=== PATIENT | female | born 1995 | race Caucasian/White ===

== ENCOUNTER 2017-06-18 18:58 | Emergency (ER) | payer MEDICAID ==
[~2017-06-18] VITALS: Ht 160 cm; Wt 71.5 kg
[~2017-06-18 18:58] MED LIST: ALBU8.5H3 INH; ALBU8.5H5 INH; CETI10CA PO; GUAI118L94 PO; PREN-39 PO
[2017-06-18 19:06] VITALS: Ht 160 cm; Wt 71.5 kg
[2017-06-18 23:32] LABS: URINE BLOOD (Dip) POC Negative (NEGATIVE)
[2017-06-19 00:24] LABS: CALCIUM 8.7 mg/dl (8.4-10.2); CREATININE 0.53 mg/dl (0.44-1.00); POTASSIUM 3.9 mmol/L (3.5-5.1)
[2017-06-19 01:29] LABS: BASOPHILS % 0.4 % (0.0-2.0); EOSINOPHILS # 0.2 10^3/ul (0.0-0.5); EOSINOPHILS % 1.6 % (0.0-7.0); HEMATOCRIT 35.9 % (37.0-47.0); HEMOGLOBIN 12.3 g/dl (12.0-16.0); LYMPHOCYTES # 2.8 10^3/ul (0.8-2.9); LYMPHOCYTES % 28.8 % (15.0-51.0); MEAN CORPUSCULAR HEMOGLOBIN 29.6 pg (29.0-33.0); MEAN CORPUSCULAR HGB CONC 34.3 g/dl (32.0-37.0); MEAN CORPUSCULAR VOLUME 86.3 fl (82.0-101.0); MONOCYTES % 10.3 % (0.0-11.0); NEUTROPHIL # 5.6 10^3/ul (1.6-7.5); NEUTROPHILS % 58.4 % (39.0-77.0); PLATELET COUNT 221 10^3/UL (140-415); RED BLOOD COUNT 4.16 10^6/ul (4.20-5.40); RED CELL DISTRIBUTION WIDTH 13.9 % (11.5-14.5); WHITE BLOOD COUNT 9.6 10^3/ul (4.8-10.8)
[2017-06-23 16:11] LABS: URINE BLOOD (Dip) POC Negative (NEGATIVE)
[2017-06-25] MEDS ORDERED: NITR-58 PO (22:51)
[2017-06-25] MEDS ORDERED: ACET500C5 PO (22:52)
--- NOTE | 2017-06-28 12:43 | ERA ---
ER Documentation Chief Complaint Date/Time DATE: 06/28/17 TIME: 12:35 Chief Complaint abd pain since last night, 18 weeks , denies vb HPI 21-year-old female 18 weeks with a chief complaint of abdominal pain. Denies bleeding fever, dysuria, nausea, vomiting, diarrhea, vaginal discharge, foul odor, change in fetus quickening, or identifiable patterns of symptoms. Patient has no other complaints and describes no other associated manifestations. ROS All systems reviewed and are negative except as per history of present illness. Medications Home Meds Active Scripts Acetaminophen* (Tylophen*) 500 Mg Capsule, 1 CAP PO Q6H Y for PAIN AND OR ELEVATED TEMP, #20 CAP Prov:ERICKA CURRAN PA-C 06/25/17 Nitrofurantoin Monohyd Macrocr* (Macrobid*) 100 Mg Capsr, 100 MG PO BID for 7 Days, CAP Prov:ERICKA CURRAN-Robert 06/25/17 Albuterol Sulfate* (Proair HFA*) 8.5 Gm Hfa.aer.ad, 2 PUFF INH Q4H Y for WHEEZING AND SOB, #1 INHALER Prov:SOFYA RAO NP 06/27/16 Cetirizine Hcl* (Zyrtec*) 10 Mg Capsule, 10 MG PO DAILY, #30 TAB.CHEW Prov:SOFYA RAO NP 06/27/16 Guaifenesin-Codeine Phosphate* (Guaifenesin* with Codeine Liq) 120 Ml Liquid, 5 ML PO Q4H for COUGH, #60 ML Prov:SOFYA RAO NP 06/27/16 Albuterol Sulfate* (Albuterol Sulfate* HFA) 8.5 Gm Hfa.aer.ad, 1-2 PUFF INH Q6 Y for WHEEZING, #1 INHALER Prov:KRISTI BRADSHAW 11/07/15 Reported Medications Vits W-Ca,Fe,Fa(<1MG) ( Vitamins) 1 Tab Tablet, 1 TAB PO, TAB 12/06/15 Allergies Allergies: Coded Allergies: No Known Allergy (Unverified , 06/18/17) PMhx/Soc History of Surgery: No Anesthesia Reaction: No Hx Neurological Disorder: No Hx Respiratory Disorders: No Hx Cardiac Disorders: No Hx Psychiatric Problems: No Hx Miscellaneous Medical Probl: Yes (Therapeutic ,) Hx Alcohol Use: Yes (OCCASIONAL) Hx Substance Use: No Hx Tobacco Use: No Smoking Status: Never smoker Physical Exam Physical Exam Const: [] Head: Atraumatic Eyes: Normal Conjunctiva ENT: Normal External Ears, Nose and Mouth. Neck: Full range of motion..~ No meningismus. Resp: Clear to auscultation bilaterally Cardio: Regular rate and rhythm, no murmurs Abd: Soft, non tender, non distended. Normal bowel sounds Skin: No petechiae or rashes Back: No midline or flank tenderness Ext: No cyanosis, or edema Neur: Awake and alert Psych: Normal Mood and Affect Results 24 hrs Laboratory Tests Test 06/18/17 22:30 06/19/17 07:46 White Blood Count 9.610^3/ul Red Blood Count 4.1610^6/ul Hemoglobin 12.3g/dl Hematocrit 35.9% Mean Corpuscular Volume 86.3fl Mean Corpuscular Hemoglobin 29.6pg Mean Corpuscular Hemoglobin Concent 34.3g/dl Red Cell Distribution Width 13.9% Platelet Count 86341^3/UL Mean Platelet Volume 11.0fl Neutrophils % 58.4% Lymphocytes % 28.8% Monocytes % 10.3% Eosinophils % 1.6% Basophils % 0.4% Nucleated Red Blood Cells % 0.0/100WBC Neutrophils # 5.610^3/ul Lymphocytes # 2.810^3/ul Monocytes # 1.010^3/ul Eosinophils # 0.210^3/ul Basophils # 0.010^3/ul Nucleated Red Blood Cells # 0.010^3/ul Bedside Urine pH (LAB) 7.0 Bedside Urine Protein (LAB) Negative Bedside Urine Glucose (UA) Negative Bedside Urine Ketones (LAB) Negative Bedside Urine Blood Negative Bedside Urine Nitrite (LAB) Negative Bedside Urine Leukocyte Esterase (L Negative Sodium Level 138mmol/L Potassium Level 3.9mmol/L Chloride Level 103mmol/L Carbon Dioxide Level 23mmol/L Anion Gap 16 Blood Urea Nitrogen 7mg/dl Creatinine 0.53mg/dl Glucose Level 92mg/dl Calcium Level 8.7mg/dl Beta HCG, Quantitative 71175.0mIU/ml Lab Scanned Report [id number] Procedures/MDM Patient is being evaluated and worked up for lower abdominal pain as described in the history and physical exam. My current differential diagnosis includes, but is not limited to, the following: pelvic inflammatory disease, nephrolithiasis, urinary tract infection, spontaneous , demise, and vaginitis, among others. Patient was given acetaminophen with adequate relief of symptoms. The workup included CBC, BMP, type and Rh, quantitative beta-hCG, urinalysis, urine culture, and an US. Patient left AMA due to electronic service malfunction taking too long for her liking. Labs were within normal limits urinalysis was unremarkable. At this time, I have little suspicion for placenta previa, infection, blood vessel rupture, or PPROM. The current most likely diagnosis is threatened . However, at this time I am unable to rule out demise, or complete/missed . Patient stated that she would come back in a day or 2 that she does not currently have abdominal pain. I spent adequate amount of time explaining to her the risks of leaving without a complete workup. She verbally responded that she understood, but shows left. Date of service 06/19/17. Departure Diagnosis: Primary Impression: Threatened Condition: Stable Patient Instructions: Possible Miscarriage (Threatened ) Additional Instructions: Follow-up with [facility] HELPER in 2 days. Go to ER as soon as possible JAN BREWSTER PA-C Jun 28, 2017 12:43
== END 2017-06-19 02:39 | disposition left against medical advice (07) ==
LOC: FTE 18:58 → E/R 06-19 02:39
DX: O20.0 Threatened abortion (principal); R10.9 Unspecified abdominal pain; Z3A.18 18 weeks gestation of pregnancy
CPT/HCPCS: 80048; 81003; 84702; 85025; 86900; 86901; Z7502

== ENCOUNTER 2017-06-25 17:30 | Emergency (ER) | END 2017-06-25 23:15 | disposition home or self-care (01) | DX: O20.9 Hemorrhage in early pregnancy, unspecified (principal); R10.2 Pelvic and perineal pain; Z3A.19 19 weeks gestation of pregnancy | CPT/HCPCS: 76805; 80048; 81001; 84702; 85025; 86900; 86901; Z7502 ==

== ENCOUNTER 2017-08-20 19:23 | Outpatient (CLI) | payer MEDICAID ==
[~2017-08-20] VITALS: Ht 152.4 cm; Wt 74.5 kg
[~2017-08-20 19:23] MED LIST changes: +ACET500C5 PO; +NITR-58 PO
[2017-08-20 20:29] VITALS: BP 99/55; PULSE 77; RESP 18
[2017-08-20 21:40] LABS: ADD UMIC YES; UR ASCORBIC ACID 40 mg/dL (NEGATIVE); UR BILIRUBIN (Dip) NEGATIVE (NEGATIVE); UR BLOOD (Dip) NEGATIVE (NEGATIVE); UR CLARITY SLIGHTLY CLOUDY (CLEAR); UR COLOR YELLOW (YELLOW); UR GLUCOSE (Dip) NEGATIVE (NEGATIVE); UR KETONES (Dip) NEGATIVE (NEGATIVE); UR LEUKOCYTE ESTERASE (Dip) 1+ Leu/ul (NEGATIVE); UR MUCUS FEW /HPF (NONE SEEN); UR NITRITE (Dip) NEGATIVE (NEGATIVE); UR RBC 2 /HPF (0-5); UR SPECIFIC GRAVITY (Dip) 1.024 (1.003-1.030); UR SQUAMOUS EPITHELIAL CELL FEW /HPF (FEW); UR TOTAL PROTEIN (Dip) NEGATIVE (NEGATIVE); UR UROBILINOGEN (Dip) NEGATIVE (NEGATIVE)
--- NOTE | 2017-08-20 22:56 | RADRPT ---
PROCEDURE: ULTRASOUND OBSTETRICAL CLINICAL INDICATION: 22-year-old female in labor for cervical length evaluation. TECHNIQUE: Multiple sonographic images of the pelvis were obtained. The images were reviewed on a PACS workstation. COMPARISON: Ultrasound OB June 25, 2017. FINDINGS: The cervix is closed with a length of 4.7 cm. There is a single viable intrauterine gestation. Card iac activity is present with 146 beats per minute. There is a breech presentation. The placenta is anterior. There is no evidence for an abruption or placenta previa. IMPRESSION: 1. Single viable intrauterine gestation with breech presentation. 2. The cervix appears closed with a length of 4.7 cm. .Rhett Millan MD, Date Time Electronically viewed and signed by .Rhett Millan MD, MD on 08/20/2017 22:55 .M/
--- NOTE | 2017-08-20 22:58 | RADRPT ---
PROCEDURE: ULTRASOUND BIOPHYSICAL PROFILE CLINICAL INDICATION: 22-year-old female in labor for viability. TECHNIQUE: Multiple sonographic images were obtained in order to perform a biophysical profile The images were reviewed on a PACS workstation. COMPARISON: Ultrasound OB limited obtained concurrently. FINDINGS: There is a single viable intrauterine gestation. There is a breech presentation. Cardiac activity i s present at 146 beats per minute. The placenta is anterior. The results of the biophysical profile are as follows: breathing movement = 2/2 Gross body movement = 2/2 tone = 2/2 Qualitative amniotic fluid volume = 2/2 Amniotic fluid index equals 10.6 cm. This yields a biophysical profile score of 8/8. IMPRESSION: Biophysical profile score is 8/8. .Rhett Millan MD, MD Date Time Electronically viewed and signed by .Rhett Millan MD, MD on 08/20/2017 22:57 .M/
--- NOTE | 2017-08-21 01:04 | PN ---
Triage Information Date/Time Reason for visit: Pelvic pain and pressure Weeks of Gestation 27 2/7 /Para Diabetes: none Hypertention: none Additional information 22Year-old with SIUP at 27 2/7 weeks presents with a chief complaint of pelvic pain and pressure. She has been receiving her care with Dr. Ramos. She states good movement. She denies nausea, vomiting, shortness of breath, chest pain, headache, visual changes, vaginal bleeding or LOF. Objective Vital Signs Date Time Temp Pulse Resp B/P Pulse Ox O2 Delivery O2 Flow Rate FiO2 08/20/17 20:29 98.5 77 18 99/55 Room Air Heart Rate: 140's Exam General: Patient appears well, alert and oriented, NAD, appropriate mood and affect ABD: gravid, soft, non-tender. Back: No CVA tenderness (B/L) LE: No clubbing, cyanosis, edema, thigh or calf tenderness bilaterally FHT: 140 bpm , moderate variability with acceleration, no deceleration-category I Contractions: None Results/Medications Results 24 hrs Laboratory Tests Test 08/20/17 21:05 Urine Color YELLOW Urine Clarity SLIGHTLY CLOUDY A Urine pH 5.0 Urine Specific [place] 1.024 Urine Ketones NEGATIVE Urine Nitrite NEGATIVE Urine Bilirubin NEGATIVE Urine Urobilinogen NEGATIVE Urine Leukocyte Esterase 1+ H Urine Microscopic RBC 2 Urine Microscopic WBC 5 Urine Squamous Epithelial Cells FEW Urine Mucus FEW A Urine Hemoglobin NEGATIVE Urine Glucose NEGATIVE Urine Total Protein NEGATIVE Fibronectin NEGATIVE Disposition: Discharge Assessment/Plan - FHR: No sign of metabolic acidosis- Category I - Continuous EFM, toco - Contractions: None. Occasional - US performed: nml ERIKA-10.6, CL: 4.7 - Nml U/A - Symptoms and sign of labor, preeclampsia, kick count discussed with patient, she voiced understanding. All of her questions answered. - Patient was discharged home in stable condition with the appropriate discharge instructions provided. I would like patient to have close follow-up with her primary physician or outpatient clinic in 1-2 days or return to the ER for worsening symptoms or any other urgent concerns. CINDI LOPEZ Aug 21, 2017 01:04
--- NOTE | 2017-08-21 01:08 | TRIAGE ---
OB Triage Datetime Report Generated by CPN: 08/21/2017 01:08 Datetime: 08/21/2017 23:30 Stage of : OB Triage Datetime: 08/20/2017 23:45 Stage of : OB Triage Labor Evaluation Frequency: IRRITABILITY Monitor Mode: External Duration (sec)2399: 30-40 Quality: Mild Resting Tone [place]: Relaxed Heart Rate FHR Baseline Rate: 145 Monitor Mode: External US Variability: Moderate 6-25 bpm Accelerations: 15X15 Decelerations: None Pain Assessment Pain Scale: 2 Pain Presence: Intermittent Pain Type: Cramping Pain Location: Abdomen Pain Goal: 0 Datetime: 08/20/2017 23:30 Stage of : OB Triage Datetime: 08/20/2017 22:45 Stage of : OB Triage Labor Evaluation Frequency: IRRITABILITY Monitor Mode: External Duration (sec)2399: 30-40 Quality: Mild Resting Tone [place]: Relaxed Heart Rate FHR Baseline Rate: 145 Monitor Mode: External US Variability: Moderate 6-25 bpm Accelerations: 15X15 Decelerations: None Comments: SOME LOSS OF CONTACT DUE TO PT MOVING AND GA OF BABY Pain Assessment Pain Scale: 2 Pain Presence: Intermittent Pain Type: Cramping Pain Location: Abdomen Pain Goal: 0 Datetime: 08/20/2017 21:45 Stage of : OB Triage Labor Evaluation Frequency: IRREGULAR Monitor Mode: External Duration (sec)2399: 40-50 Quality: Mild Resting Tone [place]: Relaxed Heart Rate FHR Baseline Rate: 145 Monitor Mode: External US Variability: Moderate 6-25 bpm Accelerations: 15X15 Decelerations: None Comments: SOME LOSS OF CONTACT DUE TO PT MOVING AND GA Pain Assessment Pain Scale: 3 Pain Presence: Intermittent Pain Type: Cramping Pain Location: Abdomen Pain Goal: 0 Datetime: 08/20/2017 20:45 Stage of : OB Triage Labor Evaluation Frequency: IRREGULAR Monitor Mode: External Duration (sec)2399: 40-50 Quality: Mild Resting Tone [place]: Relaxed Heart Rate FHR Baseline Rate: 150 Monitor Mode: External US Variability: Moderate 6-25 bpm Accelerations: 15X15 Decelerations: None Comments: SOME LOSS OF CONTACT DUE TO GA Pain Assessment Pain Scale: 3 Pain Presence: Intermittent Pain Type: Cramping Pain Location: Abdomen Pain Goal: 0 Datetime: 08/20/2017 20:43 Stage of : OB Triage Assessment Type: Triage Maternal Assessment Level of Consciousness: Fully Conscious DTR's/Clonus: DTRs 2+; No Clonus Headache: Denies Blurred Vision: No Respiratory Effort: Unlabored; Regular Rhythm; Equal Expansion Breath Sounds, Left: Clear and Equal Breath Sounds, Right: Clear and Equal Nausea/Vomiting: Denies RUQ Epigastric Pain: Denies Lower Extremities Edema: None Degree: None Upper Extremities Edema: None Degree: None Facial Edema: None Temperature Route: Oral Fall Risk Assessment History of Falling: (0) No Secondary Diagnosis: (0) No Ambulatory Aid: (0) Bedrest/Nurse Assist IV Therapy: (0) No Gait: (0) Normal/Bedrest/Immobile Mental Status: (0) Oriented to Own Ability Fall Score: 0 Fall Risk Score Definition: No Risk: No action required Datetime: 08/20/2017 20:42 Time of Arrival: 08/20/2017 19:15 EGA: 27.2 Arrived By: Wheelchair Arrived From: Emergency Dept Movement: Present Contractions: Irregular Time Contractions Began: 08/20/2017 09:00 Rupture of Membranes: Denies Vaginal Bleeding: None Vaginal Discharge: Denies Recent Sexual Intercouse: Denies Abdominal Trauma: Not Applicable Patient Complaints: Contractions; Cramping Time Provider Notified: 08/20/2017 20:52 Provider Notified: JOHN Initial Plan: ILDA
== END 2017-08-21 00:10 | disposition home or self-care (01) ==
LOC: OBT 19:23 → L-D 19:25 → OBT 08-21 00:10
PROVIDERS: ATTEND Obstetrics & Gynecology
DX: O26.892 Other specified pregnancy related conditions, second trimester (principal); R10.2 Pelvic and perineal pain; Z3A.27 27 weeks gestation of pregnancy
CPT/HCPCS: 76817; 76818; 81001; 82731; Z7500; G0463

== ENCOUNTER 2017-09-18 12:16 | Outpatient (CLI) | payer MEDICAID ==
[~2017-09-18] VITALS: Ht 160 cm; Wt 75.5 kg
[~2017-09-18 12:16] MED LIST changes: -ACET500C5 PO; -ALBU8.5H3 INH; -ALBU8.5H5 INH; -CETI10CA PO; -GUAI118L94 PO; -NITR-58 PO
[2017-09-18 12:43] VITALS: Ht 160 cm; Wt 75.5 kg
[2017-09-18 12:44] VITALS: BP 96/55; PULSE 82; RESP 20
--- NOTE | 2017-09-18 13:21 | RADRPT ---
PROCEDURE: US OB biophysical profile. CLINICAL INDICATION: evaluation TECHNIQUE: Multiple sonographic images of the pelvis were obtained. The images were reviewed on a PACS workstation. COMPARISON: No prior studies are available for comparison. FINDINGS: The cervix is closed and measures 4.1 cm in length. There is a single viable intrauterine gestation. Cardiac activity is present with 168 beats per min [place]. There is a vertex presentation. The placenta is anterior. There is no evidence of placental abruption. There is a normal amount of amniotic fluid with an ERIKA = 10.9 cm. Biophysical profile: movement 2/2 tone 2/2. breathing 2/2 ERIKA 2/2 Total 07/03 RPTAT: AA . IMPRESSION: Normal biophysical profile. Mildly elevated heart rate of 168 beats per minute. Normal ERIKA. The cervix is closed and measures 4.1 cm in length. Physician Enio Date Time Electronically viewed and signed by Physician Enio on 09/18/2017 13:20 /
[2017-09-18 13:35] LABS: ADD UMIC YES; UR ASCORBIC ACID NEGATIVE (NEGATIVE); UR BILIRUBIN (Dip) NEGATIVE (NEGATIVE); UR BLOOD (Dip) NEGATIVE (NEGATIVE); UR CLARITY CLEAR (CLEAR); UR COLOR YELLOW (YELLOW); UR GLUCOSE (Dip) NEGATIVE (NEGATIVE); UR KETONES (Dip) NEGATIVE (NEGATIVE); UR LEUKOCYTE ESTERASE (Dip) TRACE Leu/ul (NEGATIVE); UR MUCUS FEW /HPF (NONE SEEN); UR NITRITE (Dip) NEGATIVE (NEGATIVE); UR RBC 1 /HPF (0-5); UR SPECIFIC GRAVITY (Dip) 1.011 (1.003-1.030); UR SQUAMOUS EPITHELIAL CELL FEW /HPF (FEW); UR TOTAL PROTEIN (Dip) NEGATIVE (NEGATIVE); UR UROBILINOGEN (Dip) NEGATIVE (NEGATIVE)
--- NOTE | 2017-09-18 14:12 | PN ---
Triage Information Date/Time Reason for visit: Uterine contractions Weeks of Gestation 31+ /Para 3/2 Diabetes: none Hypertention: none Objective Vital Signs Date Time Temp Pulse Resp B/P Pulse Ox O2 Delivery O2 Flow Rate FiO2 09/18/17 12:44 98.4 82 20 96/55 Room Air Heart Rate: 140's Contractions: None Results/Medications Results 24 hrs Laboratory Tests Test 09/18/17 13:05 Urine Color YELLOW Urine Clarity CLEAR Urine pH 6.0 Urine Specific [place] 1.011 Urine Ketones NEGATIVE Urine Nitrite NEGATIVE Urine Bilirubin NEGATIVE Urine Urobilinogen NEGATIVE Urine Leukocyte Esterase TRACE A Urine Microscopic RBC 1 Urine Microscopic WBC 1 Urine Squamous Epithelial Cells FEW Urine Mucus FEW A Urine Hemoglobin NEGATIVE Urine Glucose NEGATIVE Urine Total Protein NEGATIVE Disposition: Discharge Assessment/Plan CXL WNL NST reassuring BPP 07/03 Patient's questions answered Precautions reviewed VIRGIE ARANA M.D. Sep 18, 2017 14:12
== END 2017-09-18 14:20 | disposition home or self-care (01) ==
LOC: OBG 12:16 → OBT 12:16
PROVIDERS: ATTEND Obstetrics & Gynecology
DX: O62.9 Abnormality of forces of labor, unspecified (principal); Z3A.31 31 weeks gestation of pregnancy
CPT/HCPCS: 76817; 76818; 81001; Z7500; G0463

== ENCOUNTER 2017-11-14 19:30 | Outpatient (CLI) | END 2017-11-14 21:36 | disposition home or self-care (01) ==

== ENCOUNTER 2017-11-17 22:02 | Inpatient (IN) | payer MEDICAID ==
--- NOTE | 2017-11-14 22:09 | PN ---
Triage Information Date/Time November 14, 2017 Reason for visit: Uterine contractions Weeks of Gestation 39 weeks and 4 days /Para 4 para 2 Diabetes: none Hypertention: none Additional information 22-year-old with IUP at 39 weeks and 4 days with care with Dr. Ramos presented with complaint of contractions. She denies any leaking of fluid, vaginal bleeding or decreased movement. Objective Heart Rate: 130's Contractions: >10 Minutes Apart Exam General appearance: Alert and oriented 4. Patient does not appear to be in any acute distress abdomen: Soft, gravid, fundal height consistent with gestational age Vaginal exam: 1 fingertip/20% -3 Patient had been observed for a couple of hours and repeat exam did not show any cervical change BPP: 07/03 ERIKA adequate Results/Medications Imaging Results PROCEDURE: Obstetrical ultrasound for biophysical profile CLINICAL INDICATION: Biophysical profile. . TECHNIQUE: Obstetrical ultrasound of the uterus for biophysical profile. Transabdominal views are obtained. COMPARISON: US PELVIS 09/18/2017 FINDINGS: Single intrauterine gestation. Presentation: Cephalic. Placenta: Anterior. No evidence of placental abruption. No evidence of placenta previa. breathing movement = 2/2 tone = 2/2 motion = 2/2 ERIKA = 2/2 ERIKA = 9.1 cm heart rate: 133 beats per minute IMPRESSION: Single intrauterine gestation. Biophysical profile 07/03 RPTAT: AADD Disposition: Discharge Assessment/Plan IUP at 39 weeks and 4 days Not in labor testing reassuring Adequate ERIKA Patient will be discharged home Strict labor precaution and kick count and follow-up tomorrow with her primary OB discussed with the patient Patient verbalized understanding All questions were answered MARIANA ARMANDO MD Nov 14, 2017 22:09
[~2017-11-17] VITALS: Ht 157.5 cm; Wt 78.5 kg
[2017-11-17 22:19] VITALS: Ht 157.5 cm; Wt 78.5 kg
[2017-11-17 22:20] VITALS: BP 114/66; PULSE 68; RESP 18
[2017-11-17] MEDS ORDERED: MISOPROSTOL 200 MCG TAB PR PRN (23:00)
[2017-11-17] MEDS ORDERED: METHYLERGONOVINE 0.2 MG INJ IM PRN (23:00)
[2017-11-17] MEDS ORDERED: CARBOPROST 250 MCG INJ IM PRN (23:00)
[2017-11-17] MEDS ORDERED: BUTORPHANOL 2 MG INJ IV PRN (23:00)
[2017-11-17] MEDS ORDERED: OXYTOCIN 30 UNITS/LR 500 ML IV PRN (23:00)
[2017-11-17] MEDS ORDERED: IBUPROFEN 600 MG TAB PO PRN (23:00)
[2017-11-17] MEDS ORDERED: OXYTOCIN 30 UNITS/LR 500 ML IV SCH ×3 (23:00)
[2017-11-17] MEDS ORDERED: LIDOCAINE 1% (MPF) 30 ML INJ INJ PRN (23:00)
--- NOTE | 2017-11-17 23:21 | TRIAGE ---
OB Triage Datetime Report Generated by CPN: 11/17/2017 23:21 Datetime: 11/17/2017 22:54 Stage of : OB Triage Temperature Route: Oral Labor Evaluation Frequency: 6-11 Monitor Mode: External Duration (sec)2399: 60-90 Quality: Mild Pattern: Normal: <= 5 Contractions in 10 Minutes Resting Tone [place]: Relaxed Heart Rate FHR Baseline Rate: 135 Monitor Mode: External US Variability: Moderate 6-25 bpm Accelerations: 15X15 Decelerations: None Category: Category I Pain Assessment Pain Scale: 8 Pain Presence: Intermittent Pain Type: Cramping Pain Location: Abdomen; Back Pain Goal: 5 Pain Relief Measures: Comfort Measures Datetime: 11/17/2017 22:37 Vaginal Exam Dilatation (cms): 1.0 Effacement (%): 60 Station: -3 Exam By: KEY Vaginal Bleeding: None Cervix, Consistency: Soft Cervix, Position: Posterior Datetime: 11/17/2017 22:22 Time of Arrival: 11/17/2017 21:57 EGA: 40.0 Arrived By: Ambulatory Arrived From: Home Chief Complaint: UC'S SINCE 170 Movement: Present Contractions: Irregular Time Contractions Began: 11/17/2017 17:00 Rupture of Membranes: Denies Vaginal Discharge: Denies Recent Sexual Intercouse: Denies Patient Complaints: None Time Provider Notified: 11/17/2017 22:40 Provider Notified: DR BUENROSTRO Initial Plan: EFM, ASSESSMENT, CALL MD FOR ORDERS Datetime: 11/17/2017 22:20 Assessment Type: Triage Maternal Assessment Level of Consciousness: Fully Conscious DTR's/Clonus: DTRs 2+; No Clonus Headache: Denies Blurred Vision: No Respiratory Effort: Unlabored; Regular Rhythm; Equal Expansion Breath Sounds, Left: Clear and Equal Breath Sounds, Right: Clear and Equal Nausea/Vomiting: Denies RUQ Epigastric Pain: Denies Lower Extremities Edema: None Upper Extremities Edema: None Facial Edema: None Fall Risk Assessment History of Falling: (0) No Secondary Diagnosis: (0) No Ambulatory Aid: (0) Bedrest/Nurse Assist IV Therapy: (0) No Gait: (0) Normal/Bedrest/Immobile Mental Status: (0) Oriented to Own Ability Fall Score: 0 Fall Risk Score Definition: No Risk: No action required Datetime: 11/14/2017 19:54 Fall Score: 0 Fall Risk Score Definition: No Risk: No action required Datetime: 11/14/2017 19:52 EGA: 39.4 Datetime: 09/18/2017 13:00 Fall Score: 0 Fall Risk Score Definition: No Risk: No action required Datetime: 09/18/2017 12:31 EGA: 31.3 Datetime: 08/20/2017 20:43 Fall Score: 0 Fall Risk Score Definition: No Risk: No action required Datetime: 08/20/2017 20:42 EGA: 27.2
[2017-11-18] MEDS: LACTATED RINGER'S 1,000 ML IV SCH ×2 (00:01→05:12)
[2017-11-18 00:28] LABS: BASOPHILS % 0.3 % (0.0-2.0); EOSINOPHILS # 0.1 10^3/ul (0.0-0.5); EOSINOPHILS % 1.1 % (0.0-7.0); HEMATOCRIT 33.4 % (37.0-47.0); HEMOGLOBIN 11.5 g/dl (12.0-16.0); LYMPHOCYTES # 1.9 10^3/ul (0.8-2.9); LYMPHOCYTES % 23.7 % (15.0-51.0); MEAN CORPUSCULAR HEMOGLOBIN 29.2 pg (29.0-33.0); MEAN CORPUSCULAR HGB CONC 34.4 g/dl (32.0-37.0); MEAN CORPUSCULAR VOLUME 84.8 fl (82.0-101.0); MEAN PLATELET VOLUME 10.8 fl (7.4-10.4); MONOCYTE # 0.9 10^3/ul (0.3-0.9); NEUTROPHIL # 5.1 10^3/ul (1.6-7.5); NEUTROPHILS % 63.5 % (39.0-77.0); PLATELET COUNT 194 10^3/UL (140-415); RED BLOOD COUNT 3.94 10^6/ul (4.20-5.40); RED CELL DISTRIBUTION WIDTH 13.6 % (11.5-14.5); WHITE BLOOD COUNT 7.9 10^3/ul (4.8-10.8)
[2017-11-18] MEDS ORDERED: ALBUTEROL HFA 8 GM INHALER INH PRN ×2 (00:30→10:00)
--- NOTE | 2017-11-18 00:50 | HP ---
Date/Time of Note Date/Time of Note DATE: 11/18/17 TIME: 00:36 OB - History Hx of Present Free Text/Dictation 22 y.o A1(iab) at 40w here c/o uterine contractions with intact membrane. She was here on 11/14/17 with same problem ,sent home since she wasn't in labor. VE 1cm /6o%/-2 pain level 8/10 UC irreg CAT 1 tracing GBS neg course was complicated with pyelectasis also patient has consent for tubal sterilization,even she is 22 y.o admitted for pitocin augmentation. Chief Complaint: UC's Estimated Due Date: Nov 17, 2017 : 4 Para: 2 Spontaneous : 0 Therapeutic : 1 Care: Good Care Ultrasounds: Abnormal US findings, Other Obstetrical Complications: None Medical Complications: None Past Family/Social History * Past Medical, Surgical, Family and Obstetric Histories reviewed from chart. Blood Type: O+ Rubella: immune RPR/VDRL: Negative GBS Status: Negative HBsAG: Negative OB Admission Exam Vital Signs Vital Signs Vital Signs Date Time Temp Pulse Resp B/P Pulse Ox O2 Delivery O2 Flow Rate FiO2 11/17/17 22:20 98.0 68 18 114/66 Room Air Physical Exam HEENT: WNL Heart: Rhythm Normal Lungs: Clear, Equal Abdomen: WNL Extremities: Normal Reflexes: Normal Cervical Dilatation: 1cm Effacement: 50% Station: -2 Membranes: Intact Amniotic Fluid: Unevaluable Heart Rate: 140's Accelerations: Accelerations Present Decelerations: No Decelerations Varibility: Moderate Contractions on Admission: >10 Minutes Apart Intensity: Moderate Last 72 hours Lab Results CBC & BMP 11/17/17 23:50 OB Assessment/Plan Reason for admission: other (pitocin augmentation) Other Assessment: IUP 40w1d in early labor Induction Method: per Pitocin Protocol EYAD BUENROSTRO MD Nov 18, 2017 00:47
[2017-11-18 01:24] LABS: INR 0.91; PROTIME 12.3 Sec (11.9-14.9)
[2017-11-18 01:25] LABS: PARTIAL THROMBOPLASTIN TIME 30.7 Sec (25.0-35.0)
--- NOTE | 2017-11-18 06:24 | LDN ---
Date/Time of Note Date/Time of Note DATE: 11/18/17 TIME: 06:20 Delivery Summary Weeks of Gestation 40w1d Placenta Delivered: Spontaneously Meconium: none Episiotomy: No Perineal laceration: 0 Anesthesia type: None Estimated blood loss: 200 Sponge & Needle done & correct: Yes All needle counts correct: Yes Any foreign bodies felt in the: No Problems: Infant Delivery Information Sex Sex: female Apgars 1 Minute: 9 5 Minute: 9 Suctioning Nose & mouth suctioned at kaye: Yes Delee suction performed: No Umbilical Cord Umbilical cord with: 3 Vessels Cord presentations: no nuchal cord Cord Blood was obtained: Yes Mother & Baby Disposition Disposition Mom & Baby to Maternity; Good: Yes Mom transferred to: Other Baby to NICU: No () EYAD BUENROSTRO MD Nov 18, 2017 06:24
--- NOTE | 2017-11-18 06:30 | QN ---
Documentation Comment 22 y.o A1 desire to have tubal sterilizsation and has consent for surgery. offered her temporary measurement as mirnena or paragard (IUD) and reconsideration having permanant method. patient decided not to have tubal sterilization at least for now EYAD BUENROSTRO MD Nov 18, 2017 06:30
[2017-11-18 08:35] VITALS: BP 98/55; PULSE 79; RESP 18
[2017-11-18 09:00] VITALS: BP 101/67; PULSE 70; RESP 18
[2017-11-18] MEDS ORDERED: METHYLERGONOVINE 0.2 MG INJ IM PRN (09:00)
[2017-11-18] MEDS ORDERED: OXYCODONE/ASPIRIN (4.88/325) TAB PO PRN (09:00)
[2017-11-18] MEDS ORDERED: ZOLPIDEM 5 MG TAB PO PRN (09:00)
[2017-11-18] MEDS ORDERED: OXYTOCIN 30 UNITS/LR 500 ML IV PRN (09:00)
[2017-11-18] MEDS ORDERED: MISOPROSTOL 200 MCG TAB PR PRN (09:00)
[2017-11-18] MEDS ORDERED: CARBOPROST 250 MCG INJ IM PRN (09:00)
[2017-11-18] MEDS ORDERED: LANOLIN 7 GM TUBE TOP PRN (09:00)
[2017-11-18] MEDS ORDERED: BENZOCAINE 20% 56 ML SPRAY TOP PRN (09:00)
[2017-11-18] MEDS: SENNA/DOCUSATE NA (8.6MG/50MG) TAB PO SCH ×2 (10:01→21:00)
[2017-11-18] MEDS: OXYCODONE/ASPIRIN (4.88/325) TAB PO PRN (10:01)
[2017-11-18] MEDS: WITCH HAZEL/GLYCERIN PAD PR PRN (10:06)
[2017-11-18] MEDS: IBUPROFEN 600 MG TAB PO SCH ×2 (11:23→17:18)
[2017-11-18 12:00] VITALS: BP 105/68; PULSE 68; RESP 19
[2017-11-18 16:02] VITALS: BP 112/68; PULSE 77; RESP 18
[2017-11-18 20:00] VITALS: BP 106/63; PULSE 72; RESP 18
[2017-11-19] MEDS: IBUPROFEN 600 MG TAB PO SCH ×4 (00:02→18:14)
[2017-11-19 04:00] VITALS: BP 104/56; PULSE 80; RESP 18
[2017-11-19 08:20] VITALS: BP 102/69; PULSE 65; RESP 18
[2017-11-19 09:05] LABS: BASOPHIL # 0.1 10^3/ul (0.0-0.1); BASOPHILS % 0.4 % (0.0-2.0); EOSINOPHILS # 0.3 10^3/ul (0.0-0.5); EOSINOPHILS % 2.2 % (0.0-7.0); HEMATOCRIT 30.3 % (37.0-47.0); HEMOGLOBIN 9.9 g/dl (12.0-16.0); LYMPHOCYTES # 2.8 10^3/ul (0.8-2.9); MEAN CORPUSCULAR HEMOGLOBIN 28.6 pg (29.0-33.0); MEAN CORPUSCULAR HGB CONC 32.7 g/dl (32.0-37.0); MEAN CORPUSCULAR VOLUME 87.6 fl (82.0-101.0); MONOCYTE # 0.9 10^3/ul (0.3-0.9); MONOCYTES % 8.3 % (0.0-11.0); NEUTROPHIL # 7.2 10^3/ul (1.6-7.5); NEUTROPHILS % 63.7 % (39.0-77.0); PLATELET COUNT 185 10^3/UL (140-415); RED BLOOD COUNT 3.46 10^6/ul (4.20-5.40); RED CELL DISTRIBUTION WIDTH 14.3 % (11.5-14.5); WHITE BLOOD COUNT 11.3 10^3/ul (4.8-10.8)
[2017-11-19] MEDS: SENNA/DOCUSATE NA (8.6MG/50MG) TAB PO SCH ×2 (09:08→21:20)
[2017-11-19] MEDS: OXYCODONE/ASPIRIN (4.88/325) TAB PO PRN (11:55)
[2017-11-19] MEDS: WITCH HAZEL/GLYCERIN PAD PR PRN (11:57)
[2017-11-19 16:10] VITALS: BP 116/71; PULSE 67; RESP 18
[2017-11-19 20:00] VITALS: BP 112/69; PULSE 76; RESP 20
[2017-11-20] MEDS: IBUPROFEN 600 MG TAB PO SCH ×3 (00:17→12:11)
[2017-11-20 05:29] VITALS: BP 109/70; PULSE 67; RESP 18
[2017-11-20 08:30] VITALS: BP 116/71; PULSE 68; RESP 18
[2017-11-20] MEDS: SENNA/DOCUSATE NA (8.6MG/50MG) TAB PO SCH (09:00)
[2017-11-20] MEDS ORDERED: DIPHTH/TET/ACEL PERTUSS (ADULT) 0.5 ML VIAL IM* ONE (09:00)
--- NOTE | 2017-11-20 10:02 | PD.PPDC ---
ORDAINED MINISTER Discharge Instruction Condition Patient Condition: Good Diet Diet: Resume Regular Diet Activity/Restrictions Activity: Normal Activity May Shower Restrictions: No Exercising No Lifting No Driving No Sexual Activity Nothing in the Vagina No Pershing No Tampons, douche Follow-up Follow-up with Physician: 2, Week/Weeks Provider Information: Post instruction given recommended to make appointment to be seen at the [facility] in 1 week Referral Agency Name and Phone Number: [facility] Return to clinic for LEARNING FACILITATOR Instructions: Fever greater than 101 Chills Worsening abdominal pain Excessive Vaginal Bleeding More than 2 pads per hour Unable to tolerate diet OB Instructions: Breast Tenderness Depression Blurried Vision Headache Surgical Instructions: Incisional Drainage Incisional Redness JOVON GILL MD Nov 20, 2017 10:02
--- NOTE | 2017-11-20 10:05 | DS ---
Date/Time of Note Date/Time of Note DATE: 11/20/17 TIME: 10:03 Discharge Summary Admission/Discharge Info Admit Date/Time Nov 17, 2017 at 22:40 Discharge Date/Time November 20, 2017 at 10 AM Discharge Diagnosis Post normal vaginal delivery Patient Condition: Good Procedures Normal vaginal delivery Hx of Present Illness Term admitted to the hospital for delivery Hospital Course Satisfactory uneventful Home Meds Reported Medications Vits W-Ca,Fe,Fa(<1MG) ( Vitamins) 1 Tab Tablet, 1 TAB PO, TAB 12/06/15 Follow-up Plan instruction given recommended to make appointment to be seen at the clinic in 2 weeks Primary Care Provider Care Physician No Primary Time spent on discharge: < 30 minutes JOVON GILL MD Nov 20, 2017 10:05
[2017-11-21] MEDS ORDERED: INFLUENZA VIRUS VACCINE 0.5 ML SYG IM* ONE (12:00)
== END 2017-11-20 12:55 | disposition home or self-care (01) | DRG 775 ==
LOC: OBT 22:02 → L-D 22:04 → OBT 22:40 → L-D 22:40 → PP1 11-18 08:30
PROVIDERS: ADMIT Obstetrics & Gynecology; ATTEND Obstetrics & Gynecology
PROC: 10E0XZZ Delivery of Products of Conception, External Approach (ICD-10-PCS; principal; 2017-11-18)
DX: O80 Encounter for full-term uncomplicated delivery (principal); Z3A.40 40 weeks gestation of pregnancy
CPT/HCPCS: 85025; 85610; 85730; 86592; 86850; 86900; 86901; 90715; 99464; G0463; J0595; J2590; J7120